=== PATIENT | female | born 1985 | race Caucasian/White ===

== ENCOUNTER 2022-01-08 10:42 | Emergency (ER) | payer OTHER ==
[~2022-01-08] VITALS: Ht 160 cm; Wt 69.4 kg
[2022-01-08 11:33] LABS: BASOPHIL 0.5 % (0-2); HCT 39.7 % (37.0-47.0); HGB 13.4 g/dl (12.5-16.0); MCH 29.5 pg (25.0-31.0); MCHC 33.8 g/dL (32.0-36.0); MCV 87.4 fL (78.0-100.0); MONOCYTE 7.5 % (0-12); MPV 10.9 fL (6.0-9.5); NEUTROPHIL 56.8 % (41-80); NRBC 0; PLT 261 K/uL (150-400); RBC 4.54 M/uL (4.20-5.40); RDW 11.9 % (11.5-14.0); WBC 4.2 K/uL (4.0-10.5)
[2022-01-08 11:51] LABS: BILIRUBIN - TOTAL 0.4 mg/dL (0.2-1.0); BUN/CREAT RATIO (CALC) 12.3 RATIO; CREATININE 0.73 mg/dL (0.51-0.95); GLOBULIN (CALCULATION) 3.2 g/dL; POTASSIUM 3.8 mmol/L (3.5-5.1); TOTAL PROTEIN 7.2 g/dL (6.4-8.2)
[2022-01-08 11:57] LABS: BILIRUBIN NEGATIVE (NEGATIVE); BLOOD NEGATIVE Ery/uL (NEGATIVE); CLARITY CLEAR (CLEAR); COLOR YELLOW (YELLOW); GLUCOSE (U) NORMAL (NORMAL); LEUKOCYTES 2+ Leu/uL (NEGATIVE); NITRITE NEGATIVE (NEGATIVE); PROTEIN NEGATIVE (NEGATIVE); SPECIFIC GRAVITY 1.025 (1.001-1.030); UROBILINOGEN 0.2 mg/dL (0.2-1.0); pH 6.5 (5.0-9.0)
[2022-01-08 12:05] LABS: MUCOUS MODERATE
[2022-01-08 12:06] LABS: BACTERIA 3+; SQUAMOUS EPITHELIAL CELLS 20-50; URINARY RBC RARE
[2022-01-08] MEDS ORDERED: PEPCID AC20 MG PO (16:43)
[2022-01-08] MEDS ORDERED: DICYCLOMINE HCL20 MG PO (16:43)
[2022-01-08] MEDS ORDERED: ONDANSETRON ODT4 MG PO (16:43)
== END 2022-01-08 16:59 | disposition home or self-care (01) ==
LOC: FER 10:42
PROVIDERS: Emergency Medicine
DX: R11.2 Nausea with vomiting, unspecified (principal); R19.7 Diarrhea, unspecified; R10.13 Epigastric pain; R10.11 Right upper quadrant pain; Z28.310 Unvaccinated for COVID-19
CPT/HCPCS: 36415; 76705; 80053; 81001; 82150; 83690; 85025; J2270; J2405; J7030